=== PATIENT | female | born 1960 | race Hispanic/Latino ===

== ENCOUNTER 2019-01-08 00:27 | Emergency (ER) | payer MEDICARE, BC ==
[~2019-01-08] VITALS: Ht 152.4 cm; Wt 68.5 kg
[~2019-01-08 00:27] MED LIST: ASPIRIN CHEW81 MG PO; BONIVA3 MG/3 ML; MULTIVITAMINS1 EAC2 PO
[2019-01-08 01:19] LABS: BILIRUBIN,URINE NEGATIVE (NEGATIVE); CLARITY,URINE SL CLOUDY (CLEAR); COLOR,URINE YELLOW (YELLOW); KETONES,URINE NEGATIVE (NEGATIVE); LEUKOCYTE ESTERASE ,URINE NEGATIVE (NEGATIVE); NITRITE,URINE NEGATIVE (NEGATIVE); PROTEIN,URINE DIPSTICK NEGATIVE (NEGATIVE); URINE UROBILINOGEN 1 mg/dL (0.2 - 1)
[2019-01-08 01:31] LABS: ANION GAP 15.3 mmol/L (8-16); CALCIUM 9.9 mg/dL (8.4-10.2); CREATININE, SERUM 0.99 mg/dL (0.57-1.11); POTASSIUM 4.3 mmol/L (3.5-5.1)
--- NOTE | 2019-01-08 01:43 | Diagnostic Imaging Report ---
EXAMINATION: Head CT without contrast. HISTORY:Headache. COMPARISON:None. TECHNIQUE: Multidetector axial images were obtained from the foramen magnum to the vertex without contrast. The images were reconstructed using brain and bone algorithms. Thin section brain images were reformatted into coronal and sagittal planes. Dose modulation, iterative reconstruction, and/or weight based adjustment of the mA/kV was utilized to reduce the radiation dose to as low as reasonably achievable. Intravenous contrast: None IMAGE QUALITY: Acceptable. FINDINGS: Skull/scalp: Postoperative changes from prior temporoparietal craniotomy and left frontal gama hole. Parenchyma: Cortical/subcortical based hypodensity in anterior aspect of left more than right frontal lobe and left precentral gyrus possibly represents chronic encephalomalacia related to prior trauma or vascular insult vs edema secondary to underlying mass. Nonspecific bilateral frontoparietal patchy white matter hypodensity are likely related to small vessel ischemic changes. No acute hemorrhage, mass or acute major vascular territorial infarct. Arteries: No density suggestive of thrombosis. Dural sinuses: No abnormal density suggestive of thrombosis. Ventricles: Mild compensated dilatation due to volume loss and exvacuodilatation of left more than right frontal horn of lateral ventricles. Extra-axial spaces: No abnormal density. Brain volume: Mild generalized cerebral volume loss. Craniocervical junction: No mass, Chiari malformation, or basilar invagination. Sella: No mass. Paranasal/mastoid sinuses: Imaged portions unremarkable. IMPRESSION: 1. No acute intracranial hemorrhage or acute major vascular territorial infarct. 2. Cortical/subcortical based hypodensity in anterior aspect of left more than right frontal lobe and left precentral gyrus may represent encephalomalacia related to prior trauma or vascular insult vs edema secondary to underlying mass, given history of breast cancer. Prior studies if available for comparison will be helpful. If there is clinical concern consider follow-up with MRI of the brain with and without contrast for further assessment. 3. Mild generalized cerebral volume loss. 4. Mild supratentorial white matter microvascular ischemic changes. 5. Postoperative changes from prior bilateral temporal parietal craniotomy. Signed by: Dr. Arminda Garibay M.D. on 01/08/2019 1:40 AM
[2019-01-08 01:48] LABS: BASOPHILS % 0.5 % (0.0-1.0); EOSINOPHILS # (AUTO) 0.2 (0.0-0.4); EOSINOPHILS % 2.2 % (0.0-6.0); HEMATOCRIT 39.1 % (34.2-44.1); LYMPHOCYTES # (AUTO) 2.3 (1.0-3.2); LYMPHOCYTES % 27.6 % (18.0-39.1); MEAN CORPUSCULAR HEMOGLOBIN 30.3 pg (28-32); MEAN CORPUSCULAR HGB CONC 33.2 g/dL (31-35); MEAN CORPUSCULAR VOLUME 91.1 fL (81-99); MONOCYTES # (AUTO) 0.6 (0.2-0.8); MONOCYTES % 7.5 % (4.4-11.3); NEUTROPHILS % 61.8 % (38.7-80.0); PLATELET COUNT 243 x10e3/uL (140-360); RED BLOOD COUNT 4.29 x10e6/uL (3.6-5.1); RED CELL DISTRIBUTION WIDTH 13.1 % (11.7-14.4)
[2019-01-08] MEDS ORDERED: TRAMADOL HCL 50 MG TAB PO ONE (02:00)
[2019-01-08 02:08] LABS: RBC,URINE 0-5 /HPF (0-5); WBC,URINE (MAN) 0-5 /HPF (0-5)
[2019-01-08 02:09] LABS: EPITHELIAL CELLS,URINE RARE /LPF
[2019-01-08 02:26] VITALS: BP 118/63
== END 2019-01-08 02:39 | disposition home or self-care (01) ==
LOC: ER 00:27
DX: G44.52 New daily persistent headache (NDPH) (principal); Z85.3 Personal history of malignant neoplasm of breast; I67.5 Moyamoya disease
CPT/HCPCS: 36415; 70450; 80048; 81001; 85025; 99284